=== PATIENT | male | born 1955 | race Caucasian/White ===

== ENCOUNTER → 2020-03-04 | Day surgery (SDC) | payer OTHER ==
[~2020-03-04] VITALS: Ht 172.7 cm; Wt 74.8 kg
[~2020-03-04] MED LIST: ACCU-CHEK COMFORT CURVE STRIP VI ONE; CIPROFLOXACIN 400MG/200ML 200 ML IV ONE; DexAMETHasone SOD PHOS 10MG/1ML VIAL INJ ONE; GLYCOPYRROLATE 0.2 MG/ML 1ML VIAL ONE; HYDROmorphone HCL 2 MG/ML VL IV PRN; INSREG3 IV; KETOROLAC TROMETH 30 MG/ML 1ML VIAL ONE; LIDOCAINE 2% (LOCAL ANESTH.) PF 5ml SDV ONE; MEPERIDINE HCL (50 MG/ML) 1 ML VIAL ONE; MIDAZOLAM HCL 1MG/1ML-2 ML VIAL ONE; ONDANSETRON HCL 4 MG/2 ML VIAL IV PRN; ONDANSETRON HCL 4 MG/2 ML VIAL ONE; PROPOFOL 10 MG/ML 20 ML IV ONE; ROCURONIUM 10MG/ML 10ML VIAL IV ONE; ePHEDrine SULFATE 50 MG/ML AMP ONE; fentaNYL CITRATE 100 MCG/2 ML VL ONE; mitoMYcin 40 MG in STERILE WATER 60 ML IS ONE
[2020-03-04 13:20] VITALS: BP 155/78
== END | disposition home or self-care (01) ==
LOC: SUR 07:51
PROVIDERS: ATTEND Urology
DX: D49.4 Neoplasm of unspecified behavior of bladder (principal); N30.80 Other cystitis without hematuria; E11.9 Type 2 diabetes mellitus without complications; Z79.4 Long term (current) use of insulin; Z87.891 Personal history of nicotine dependence; Z20.828 Contact with and (suspected) exposure to other viral communicable diseases; Z79.899 Other long term (current) drug therapy; Z98.890 Other specified postprocedural states
CPT/HCPCS: 52224; 82962; 88305; J0744; J1100; J1885; J2001; J2175; J2250; J2405; J2704; J3010; J9280; U0003

== ENCOUNTER 2020-06-24 06:52 | Day surgery (SDC) | payer OTHER ==
[~2020-06-24] VITALS: Ht 172.7 cm; Wt 79.4 kg
[~2020-06-24 06:52] MED LIST changes: -ACCU-CHEK COMFORT CURVE STRIP VI ONE; -CIPROFLOXACIN 400MG/200ML 200 ML IV ONE; -DexAMETHasone SOD PHOS 10MG/1ML VIAL INJ ONE; -GLYCOPYRROLATE 0.2 MG/ML 1ML VIAL ONE; -HYDROmorphone HCL 2 MG/ML VL IV PRN; -INSREG3 IV; +INSREG3 SC; +INSU300I SC; -KETOROLAC TROMETH 30 MG/ML 1ML VIAL ONE; -LIDOCAINE 2% (LOCAL ANESTH.) PF 5ml SDV ONE; -MEPERIDINE HCL (50 MG/ML) 1 ML VIAL ONE; -MIDAZOLAM HCL 1MG/1ML-2 ML VIAL ONE; -ONDANSETRON HCL 4 MG/2 ML VIAL IV PRN; -ONDANSETRON HCL 4 MG/2 ML VIAL ONE; -PROPOFOL 10 MG/ML 20 ML IV ONE; -ROCURONIUM 10MG/ML 10ML VIAL IV ONE; -ePHEDrine SULFATE 50 MG/ML AMP ONE; -fentaNYL CITRATE 100 MCG/2 ML VL ONE; -mitoMYcin 40 MG in STERILE WATER 60 ML IS ONE
[2020-06-24] MEDS ORDERED: CIPROFLOXACIN 400MG/200ML 200 ML IV ONE (08:03)
[2020-06-24] MEDS ORDERED: mitoMYcin 40 MG in STERILE WATER 60 ML IS ONE (09:00)
[2020-06-24] MEDS ORDERED: LIDOCAINE 1% (LOCAL ANESTH.) PF 5ml SDV ONE (09:18)
[2020-06-24] MEDS ORDERED: SUCCINYLCHOLINE CHLORIDE 20 MG/ML 10ML VIAL IV ONE (09:18)
[2020-06-24] MEDS ORDERED: MIDAZOLAM HCL 1MG/1ML-2 ML VIAL ONE (09:47)
[2020-06-24] MEDS ORDERED: ETOMIDATE (2MG/ML) 20ML VIAL IV ONE (09:51)
[2020-06-24] MEDS ORDERED: ROCURONIUM 10MG/ML 10ML VIAL IV ONE (09:51)
[2020-06-24] MEDS ORDERED: METOCLOPRAMIDE HCL 5MG/ml INJ 2ml VIAL ONE (09:52)
[2020-06-24] MEDS ORDERED: fentaNYL CITRATE 100 MCG/2 ML VL ONE (10:00)
[2020-06-24] MEDS ORDERED: NALOXONE HCL 0.4 MG/ML VIAL IV PRN (10:15)
[2020-06-24] MEDS ORDERED: HYDROmorphone HCL 2 MG/ML VL IV PRN ×2 (10:15)
[2020-06-24] MEDS ORDERED: ONDANSETRON HCL 4 MG/2 ML VIAL IV PRN (10:15)
[2020-06-24] MEDS ORDERED: ACCU-CHEK COMFORT CURVE STRIP VI ONE (10:15)
[2020-06-24] MEDS ORDERED: NEOSTIGMINE 1 MG/ML INJ (10mg/10ML VIAL) ONE (10:32)
[2020-06-24] MEDS ORDERED: GLYCOPYRROLATE 0.2 MG/ML 1ML VIAL ONE (10:32)
[2020-06-24 11:30] VITALS: BP 153/88
== END 2020-06-24 11:50 | disposition home or self-care (01) ==
LOC: SUR 06:52
PROVIDERS: ATTEND Urology
DX: D49.4 Neoplasm of unspecified behavior of bladder (principal); N30.20 Other chronic cystitis without hematuria; K44.9 Diaphragmatic hernia without obstruction or gangrene; E11.9 Type 2 diabetes mellitus without complications; K21.9 Gastro-esophageal reflux disease without esophagitis; Z85.51 Personal history of malignant neoplasm of bladder; Z20.822 Contact with and (suspected) exposure to COVID-19; Z98.890 Other specified postprocedural states; Z79.899 Other long term (current) drug therapy
CPT/HCPCS: 52234; 82962; 88305; 88342; J0330; J0744; J2250; J2405; J2765; J3010; J9280; U0003

== ENCOUNTER 2020-12-09 07:17 | Day surgery (SDC) | payer OTHER ==
[~2020-12-09] VITALS: Ht 170.2 cm; Wt 77.1 kg
[2020-12-09] MEDS ORDERED: MIDAZOLAM HCL 1MG/1ML-2 ML VIAL ONE (08:04)
[2020-12-09] MEDS ORDERED: fentaNYL CITRATE 100 MCG/2 ML VL ONE (08:04)
[2020-12-09] MEDS ORDERED: HYDROmorphone HCL 2 MG/ML VL ONE (08:04)
[2020-12-09] MEDS ORDERED: PROPOFOL 10 MG/ML 20 ML IV ONE (08:05)
[2020-12-09] MEDS ORDERED: ONDANSETRON HCL 4 MG/2 ML VIAL ONE ×2 (08:05→09:37)
[2020-12-09] MEDS ORDERED: LIDOCAINE 2% (LOCAL ANESTH.) PF 5ml SDV ONE (08:05)
[2020-12-09] MEDS ORDERED: ROCURONIUM 10MG/ML 10ML VIAL IV ONE (08:05)
[2020-12-09] MEDS ORDERED: DexAMETHasone SOD PHOS 10MG/1ML VIAL INJ ONE (08:05)
[2020-12-09] MEDS ORDERED: CIPROFLOXACIN 400MG/200ML 200 ML IV ONE (08:11)
[2020-12-09] MEDS ORDERED: LIDOCAINE 2% JELLY 11ml (GLYDO) ONE (08:14)
[2020-12-09] MEDS ORDERED: SUCCINYLCHOLINE CHLORIDE 20 MG/ML 10ML VIAL IV ONE (08:17)
[2020-12-09] MEDS ORDERED: ePHEDrine SULFATE 50 MG/ML AMP ONE (08:25)
[2020-12-09] MEDS ORDERED: PHENYLEPHRINE HCL 10 MG/ML VL ONE (08:25)
[2020-12-09] MEDS ORDERED: GLYCOPYRROLATE 0.2 MG/ML 1ML VIAL IV ONE (08:36)
[2020-12-09] MEDS ORDERED: FAMOTIDINE (10MG/ML) 2ML VL IV ONE (08:39)
[2020-12-09] MEDS ORDERED: MEPERIDINE HCL (50 MG/ML) 1 ML VIAL ONE (08:56)
[2020-12-09] MEDS ORDERED: ACCU-CHEK COMFORT CURVE STRIP VI ONE (09:45)
[2020-12-09] MEDS ORDERED: HYDROmorphone HCL 2 MG/ML VL IV PRN (09:45)
[2020-12-09] MEDS ORDERED: ONDANSETRON HCL 4 MG/2 ML VIAL IV PRN (09:45)
[2020-12-09 10:15] VITALS: BP 156/92
== END 2020-12-09 10:30 | disposition home or self-care (01) ==
LOC: SUR 07:17
PROVIDERS: ATTEND Urology
DX: D49.4 Neoplasm of unspecified behavior of bladder (principal); N30.80 Other cystitis without hematuria; E11.9 Type 2 diabetes mellitus without complications; F32.9 Major depressive disorder, single episode, unspecified; Z20.822 Contact with and (suspected) exposure to COVID-19; Z98.890 Other specified postprocedural states; Z87.891 Personal history of nicotine dependence; Z85.51 Personal history of malignant neoplasm of bladder
CPT/HCPCS: 52204; 52234; 82962; J0330; J0744; J1100; J2001; J2175; J2250; J2370; J2405; J2704; J3010; J3490; U0003